=== PATIENT | male | born 1980 | race Caucasian/White ===

== ENCOUNTER 2016-10-06 12:01 | Emergency (ER) | payer OTHER ==
[2016-10-06 12:07] VITALS: BP 130/85
[2016-10-06] MEDS ORDERED: LIDOCAINE 1% 2 ML VIAL ONE (13:22)
--- NOTE | 2016-10-06 13:38 | ED Physician Documentation ---
PD HPI UPPER EXT INJURY - Stated complaint Stated Complaint: L THUMB LAC - Chief complaint Chief Complaint: Ext Problem - History obtained from History obtained from: Patient, Family - History of Present Illness Location: Left, Finger (thumb) Type of injury: Laceration Where injury occurred: Home Timing - onset: How many hours ago Timing - duration: Hours Timing - details: Abrupt onset, Still present Improved by: Rest, Immobilization Worsened by: Moving, Palpating Associated symptoms: No: Weakness, Numbness, Tingling Contributing factors: No: Anticoagulated Similar symptoms before: Diagnosis (laceration) Recently seen: Not recently seen Review of Systems Constitutional: denies: Fever Respiratory: denies: Cough GI: denies: Nausea, Vomiting : denies: Dysuria Skin: reports: Laceration (s) Musculoskeletal: reports: Extremity pain. denies: Neck pain, Back pain Neurologic: denies: Generalized weakness, Focal weakness PD PAST MEDICAL HISTORY - Past Medical History Past Medical History: No Psych: Depression, Anxiety - Past Surgical History Past Surgical History: No - Present Medications Home Medications: Ambulatory Orders Medication Instructions Recorded Confirmed Bupropion HCl [Wellbutrin] 75 mg PO DAILY 04/13/15 10/06/16 Montelukast Sodium [Singulair] 5 mg PO DAILY 10/06/16 10/06/16 Omeprazole [PriLOSEC] 20 mg PO DAILY 10/06/16 10/06/16 - Allergies Allergies/Adverse Reactions: Allergies Allergy/AdvReac Type Severity Reaction Status Date / Time No Known Drug Allergies Allergy Verified 10/06/16 13:17 - Social History Does the pt smoke?: Yes Smoking Status: Current every day smoker Does the pt drink ETOH?: No Does the pt have substance abuse?: No - Immunizations Immunizations are current?: Yes Immunizations: TDAP >10years/unknown PD ED PE NORMAL - Vitals Vital signs reviewed: Yes (hypertensive ) - General General: Alert and oriented X 3, No acute distress, Well developed/nourished - HEENT HEENT: Atraumatic, PERRL - Respiratory Respiratory: No respiratory distress - Derm Derm: Normal color, Warm and dry, No rash - Extremities Extremities: No deformity, Other (There is a 2cm laceration on the radial surface of the left thumb disatlly. ) - Neuro Neuro: No motor deficit, No sensory deficit - Psych Psych: Normal mood, Normal affect Results - Vitals Vitals: Vital Signs - 24 hr 10/06/16 12:05 Temperature 36.4 C L Heart Rate 64 Respiratory 18 Rate Blood Pressure 130/85 H O2 Saturation 100 Oxygen O2 Source Room air Procedures - Laceration (location) left thumb Length in cm: 2 Wound type: Linear, Clean Neurovascular status: Sensory intact, Motor intact, Vascular intact Anesthesia: Lidocaine 1% Wound Preparation: Hibiclens, Irrigated copiously NS, Wound explored, To the base Skin layer closure: Nylon, Interrupted, Size #-0 - enter number (5-0), Sutures - enter # (4) Other: Patient tolerated well, No complications, Neurovascular intact, Dressing applied, Tetanus UTD PD MEDICAL DECISION MAKING - ED course Complexity details: considered differential, d/w patient, d/w family ED course: 36-year-old male with a simple laceration to the left distal thumb from a pocket knife is sutured. Departure - Departure Disposition: 01 Home, Self Care Clinical Impression: Thumb laceration Qualifiers: Encounter type: initial encounter Laterality: left Qualified Code(s): S61.012A - Laceration without foreign body of left thumb without damage to nail, initial encounter Condition: Stable Instructions: ED Laceration Hand Follow-Up: Vamshi Weeks MD [Primary Care Provider] - Comments: Sutures out in 7-10 days.
== END 2016-10-06 13:51 | disposition home or self-care (01) ==
LOC: ED 12:01
DX: S61.012A Laceration without foreign body of left thumb without damage to nail, initial encounter (principal); W26.0XXA Contact with knife, initial encounter; Y92.019 Unspecified place in single-family (private) house as the place of occurrence of the external cause; F17.200 Nicotine dependence, unspecified, uncomplicated
CPT/HCPCS: 12001; 99282; 99283

== ENCOUNTER 2017-03-18 17:35 | Emergency (ER) | payer OTHER ==
[2017-03-18] MEDS ORDERED: LORazepam 0.5 MG TABLET PO STA (18:12)
[2017-03-18 18:17] LABS: BASOPHILS # (AUTO) 0.2 10^3/uL (0.0-0.1); BASOPHILS % (AUTO) 1.1 %; EOSINOPHILS # (AUTO) 0.5 10^3/uL (0.0-0.7); EOSINOPHILS % (AUTO) 3.7 %; HGB - HEMOGLOBIN 15.7 g/dL (14.0-18.0); LYMPHOCYTES # (AUTO) 4.9 10^3/uL (1.5-3.5); LYMPHOCYTES % (AUTO) 36.2 %; MEAN CORPUSCULAR HEMOGLOBIN 29.3 pg (27.0-31.0); MEAN CORPUSCULAR HGB CONC 34.1 g/dL (32.0-36.0); MEAN PLATELET VOLUME 7.9 fL (7.4-11.4); MONOCYTES # (AUTO) 0.8 10^3/uL (0.0-1.0); MONOCYTES % (AUTO) 5.9 %; NEUTROPHILS # (AUTO) 7.2 10^3/uL (1.5-6.6); NEUTROPHILS % (AUTO) 53.1 %; NUCLEATED RED BLOOD CELLS AUTO 0.1 /100WBC; RED BLOOD COUNT 5.35 10^6/uL (4.70-6.10); RED CELL DISTRIBUTION WIDTH 13.2 % (12.0-15.0); UNCORRECTED WHITE BLOOD COUNT 13.6 x10^3/uL; WHITE BLOOD COUNT 13.6 x10^3/uL (4.8-10.8)
[2017-03-18 18:29] LABS: ALBUMIN/GLOBULIN RATIO 1.6 (1.0-2.2); BILIRUBIN,TOTAL 0.8 mg/dL (0.2-1.0); CALCIUM 9.4 mg/dL (8.5-10.3); CREATININE 1.2 mg/dL (0.6-1.2); POTASSIUM 3.3 mmol/L (3.5-5.0); TOTAL PROTEIN 7.8 g/dL (6.7-8.2)
--- NOTE | 2017-03-18 18:46 | ED Physician Documentation ---
History of Present Illness - Stated complaint Stated Complaint: CHEST PX - Chief complaint Chief Complaint: Cardiac - History obtained from History obtained from: Patient, Family - History of Present Illness Timing: Today, How many hours ago (1) Pain level max: 3 Pain level now: 0 Improved by: nothing Worsened by: nothing - Additonal information Additional information: states eating dinner tonight and felt "lightheaded" and fuzzy. This has happened several times in the past. No cause found. Also had L upper chest wall pain, similar symptoms several times in the past. No cause found. Has a history of anxiety. No family history of young cardiac disease. Review of Systems Ten Systems: 10 systems reviewed and negative Constitutional: denies: Fever, Chills Nose: denies: Rhinorrhea / runny nose, Congestion Throat: denies: Sore throat Skin: denies: Rash Musculoskeletal: denies: Neck pain, Back pain Neurologic: reports: Numbness (states mild numbness to the L hand and L cheek.) . denies: Focal weakness, Confused, Altered mental status, Headache, Head injury Psychiatric: reports: Anxiety PD PAST MEDICAL HISTORY - Past Medical History Past Medical History: Yes Psych: Depression, Anxiety - Past Surgical History Past Surgical History: No - Present Medications Home Medications: Ambulatory Orders Medication Instructions Recorded Confirmed Bupropion HCl [Wellbutrin] 75 mg PO DAILY 04/13/15 03/18/17 Montelukast Sodium [Singulair] 5 mg PO DAILY 10/06/16 03/18/17 Omeprazole [PriLOSEC] 20 mg PO DAILY 10/06/16 03/18/17 - Allergies Allergies/Adverse Reactions: Allergies Allergy/AdvReac Type Severity Reaction Status Date / Time No Known Drug Allergies Allergy Verified 03/18/17 17:43 - Social History Does the pt smoke?: Yes Smoking Status: Current every day smoker Does the pt drink ETOH?: No Does the pt have substance abuse?: No - Immunizations Immunizations are current?: Yes Immunizations: TDAP >10years/unknown PD ED PE NORMAL - Vitals Vital signs reviewed: Yes - General General: Alert and oriented X 3, No acute distress, Well developed/nourished - HEENT HEENT: Atraumatic, PERRL, EOMI, Moist mucous membranes - Neck Neck: Supple, no meningeal sign, No JVD, No bruit - Cardiac Cardiac: RRR, No murmur, Strong equal pulses - Respiratory Respiratory: No respiratory distress, Clear bilaterally - Abdomen Abdomen: Soft, Non tender, Non distended - Derm Derm: Warm and dry, No rash - Extremities Extremities: No edema, No calf tenderness / cord - Neuro Neuro: Alert and oriented X 3, hyster driver 2-12 intact, No motor deficit, No sensory deficit, Normal speech Eye Opening: Spontaneous Motor: Obeys Commands Verbal: Oriented GCS Score: 15 - Psych Psych: Normal mood, Normal affect - Free text exam Free text exam: NIHSS 0 Results - Vitals Vitals: Vital Signs - 24 hr 03/18/17 03/18/17 03/18/17 17:40 18:00 18:51 Temperature 36.8 C Heart Rate 93 80 83 Respiratory 18 20 18 Rate Blood Pressure 146/100 H 144/95 H 145/97 H O2 Saturation 100 97 Oxygen O2 Source Room air - Labs Labs: Laboratory Tests 03/18/17 03/18/17 03/18/17 17:55 17:55 17:55 WBC 13.6 H RBC 5.35 Hgb 15.7 Hct 46.0 MCV 86.0 MCH 29.3 MCHC 34.1 RDW 13.2 Plt Count 310 MPV 7.9 Neut # 7.2 H Lymph # 4.9 H Hart # 0.8 Eos # 0.5 Baso # 0.2 H Absolute Nucleated RBC 0.01 Nucleated RBC % 0.1 Sodium 137 Potassium 3.3 L Chloride 99 L Carbon Dioxide 26 Anion Gap 12.0 BUN 11 Creatinine 1.2 Estimated GFR (MDRD) 68 L Glucose 132 H Calcium 9.4 Total Bilirubin 0.8 AST 30 ALT 58 Alkaline Phosphatase 36 L Troponin I < 0.04 Total Protein 7.8 Albumin 4.8 Globulin 3.0 Albumin/Globulin Ratio 1.6 Lipase 25 - Rads (name of study) cxr Radiology: Prelim report reviewed, EMP read contemporaneously, See rad report ( NAD) PD MEDICAL DECISION MAKING - ED course Complexity details: reviewed results, re-evaluated patient, considered differential (No ST elevation [place], no aortic dissection, no PE, no tension pneumothorax, no aortic aneurysm), d/w patient, d/w family ED course: Patient is a 36-year-old male who presents to the emergency department with atypical chest pain today. Appears to be mainly anxiety related. Resolved with Ativan. He is well-appearing, nontoxic. No acute findings on EKG, laboratory testing or x-ray. No evidence of stroke. No evidence of tumor or mass. No evidence of aortic dissection, pulmonary embolus. Patient and family counseled regarding signs and symptoms for which I believe and urgent re- evaluation would be necessary. Patient with good understanding of and agreement to plan and is comfortable going home at this time This document was made in part using voice recognition software. While efforts are made to proofread this document, sound alike and grammatical errors may occur. Departure - Departure Disposition: Home, Self Care Clinical Impression: Lightheaded Chest pain Qualifiers: Chest pain type: unspecified Qualified Code(s): R07.9 - Chest pain, unspecified Condition: Good Instructions: ED Chest Pain Atypical Unkn Cause Follow-Up: Shavon Weeks MD [Primary Care Provider] - Within 1 week Comments: Return if you worsen. Your tests are normal tonight. The cause of your symptoms is unclear, you should follow up closely with your doctor. Discharge Date/Time: 03/18/17 19:45
[2017-03-18 18:52] VITALS: BP 145/97
--- NOTE | 2017-03-18 19:09 | XRAY Preliminary Report ---
Exam: XR CHEST 1 VIEW IMPRESSION: Stable negative single view chest. [facility] SITE ID: [id number]
--- NOTE | 2017-03-18 19:11 | XRAY Report ---
EXAM: CHEST RADIOGRAPHY EXAM DATE: 03/18/2017 06:23 PM. CLINICAL HISTORY: Chest pain. COMPARISON: 05/17/2011. TECHNIQUE: 1 view. FINDINGS: Lungs/Pleura: No focal opacities evident. No pleural effusion. No pneumothorax. Mediastinum: Within exam limitations, the cardiomediastinal contour is normal. Other: None. IMPRESSION: Stable negative single view chest. [facility] Referring Provider Line: [phone] SITE ID: [id number]
== END 2017-03-18 19:45 | disposition home or self-care (01) ==
LOC: ED 17:35
DX: R07.9 Chest pain, unspecified (principal); R42 Dizziness and giddiness; F41.9 Anxiety disorder, unspecified; F17.200 Nicotine dependence, unspecified, uncomplicated
CPT/HCPCS: 36415; 71010; 80053; 83690; 84484; 85025; 93005; 99283; A9270

== ENCOUNTER 2017-12-19 18:12 | Emergency (ER) | payer OTHER ==
[2017-12-19 18:43] LABS: BASOPHILS # (AUTO) 0.2 10^3/uL (0.0-0.1); BASOPHILS % (AUTO) 1.1 %; EOSINOPHILS # (AUTO) 0.5 10^3/uL (0.0-0.7); EOSINOPHILS % (AUTO) 3.3 %; HGB - HEMOGLOBIN 16.2 g/dL (14.0-18.0); LYMPHOCYTES % (AUTO) 35.4 %; MEAN CORPUSCULAR HEMOGLOBIN 30.3 pg (27.0-31.0); MEAN CORPUSCULAR HGB CONC 34.8 g/dL (32.0-36.0); MEAN CORPUSCULAR VOLUME 87.3 fL (80.0-94.0); MEAN PLATELET VOLUME 7.7 fL (7.4-11.4); MONOCYTES # (AUTO) 0.7 10^3/uL (0.0-1.0); NEUTROPHILS # (AUTO) 7.8 10^3/uL (1.5-6.6); NEUTROPHILS % (AUTO) 55.2 %; PLT - PLATELET COUNT 313 10^3/uL (130-450); RED BLOOD COUNT 5.34 10^6/uL (4.70-6.10); RED CELL DISTRIBUTION WIDTH 13.6 % (12.0-15.0); WHITE BLOOD COUNT 14.2 x10^3/uL (4.8-10.8)
[2017-12-19 18:56] LABS: ALBUMIN 4.8 g/dL (3.2-5.5); ALBUMIN/GLOBULIN RATIO 1.4 (1.0-2.2); BILIRUBIN,TOTAL 0.5 mg/dL (0.2-1.0); CALCIUM 9.3 mg/dL (8.5-10.3); CREATININE 1.3 mg/dL (0.6-1.2); TOTAL PROTEIN 8.2 g/dL (6.7-8.2)
[2017-12-19 19:08] LABS: BILIRUBIN,URINE NEGATIVE (NEGATIVE); GLUCOSE, URINE (UA) NEGATIVE (NEGATIVE); KETONES,URINE (UA) NEGATIVE (NEGATIVE); LEUKOCYTE ESTERASE, URINE NEGATIVE (NEGATIVE); NITRITE,URINE NEGATIVE (NEGATIVE); OCCULT BLOOD,URINE NEGATIVE (NEGATIVE); PROTEIN,URINE NEGATIVE (NEGATIVE); UROBILINOGEN,URINE 0.2 (NORMAL) E.U./dL (NORMAL)
[2017-12-19 19:11] LABS: CLARITY,URINE CLEAR (CLEAR)
--- NOTE | 2017-12-19 20:52 | ED Physician Documentation ---
PD HPI ABD PAIN - Stated complaint Stated Complaint: R AB PX - Chief complaint Chief Complaint: Abd Pain - History obtained from History obtained from: Patient - History of Present Illness Timing - onset: How many days ago (3) Timing - duration: Days (3) Timing - details: Gradual onset, Still present, Waxing and waning, Still present in ED Quality: Cramping, Aching, Pain Location: RLQ Radiation: No: Right flank Improved by: No: Eating, BM Worsened by: No: Eating Associated symptoms: Nausea, Diarrhea, Hematochezia. No: Fever, Melena, Dysuria, Hematuria, Chest pain, Loss of appetite, Weight loss Similar symptoms before: No diagnosis (has recurrent abd pain usually diffuse. Had not had it persistent RLQ in the past.) Recently seen: Not recently seen Review of Systems Constitutional: reports: Chills. denies: Fever, Myalgias Nose: denies: Rhinorrhea / runny nose, Congestion Throat: denies: Dental pain / toothache, Sore throat Cardiac: denies: Chest pain / pressure, Palpitations Respiratory: denies: Dyspnea, Cough GI: reports: Abdominal Pain, Nausea, Diarrhea (with bloody streaks, which he says is relatively common for him.). denies: Vomiting : denies: Dysuria, Frequency PD PAST MEDICAL HISTORY - Past Medical History Past Medical History: Yes Cardiovascular: None Respiratory: None Neuro: None Endocrine/Autoimmune: None GI: Other (recurrent abd pain and diarrhea, sees GI, and has had scopes without dx. Had pill camera study this past week, without results yet. ) Psych: Depression, Anxiety Other Past Medical History: ABd pain & diarrhea. - Past Surgical History Past Surgical History: Yes - Present Medications Home Medications: Ambulatory Orders Medication Instructions Recorded Confirmed Bupropion HCl [Wellbutrin] 75 mg PO DAILY 04/13/15 03/18/17 Omeprazole [PriLOSEC] 20 mg PO DAILY 10/06/16 03/18/17 HYDROcod/ACETAM 5/325 [[place] 5/325] 1 tab PO Q6H PRN #15 tablet 12/19/17 Naproxen 375 mg PO BID #20 tablet 12/19/17 Ondansetron HCl [Zofran] 4 mg PO Q6H PRN #20 tablet 12/19/17 Sertraline [Zoloft] 25 mg PO DAILY 12/19/17 12/19/17 - Allergies Allergies/Adverse Reactions: Allergies Allergy/AdvReac Type Severity Reaction Status Date / Time No Known Drug Allergies Allergy Verified 12/19/17 18:26 - Social History Does the pt smoke?: Yes Smoking Status: Current every day smoker Does the pt drink ETOH?: No Does the pt have substance abuse?: No - Immunizations Immunizations are current?: Yes Immunizations: TDAP >10years/unknown - POLST Patient has POLST: No PD ED PE NORMAL - Vitals Vital signs reviewed: Yes - General General: Alert and oriented X 3, Well developed/nourished, Other (appears in some pain) - HEENT HEENT: Moist mucous membranes, Pharynx benign - Neck Neck: Supple, no meningeal sign, No adenopathy - Cardiac Cardiac: RRR, No murmur - Respiratory Respiratory: Clear bilaterally - Abdomen Abdomen: Normal bowel sounds, Soft, Non distended, No organomegaly, Other (Tender RLQ with some guarding. Also with soft tissue density RLQ abd wall that is firm and not tender. No skin lesions. Likely lipoma but consider hernia as is deep and near muscle layer. ) - Male Male : Deferred - Rectal Rectal: Deferred - Back Back: No CVA TTP - Derm Derm: Normal color, Warm and dry, No rash Results - Vitals Vitals: Vital Signs - 24 hr 12/19/17 12/19/17 18:23 22:01 Temperature 37.1 C Heart Rate 108 H 80 Respiratory 20 16 Rate Blood Pressure 158/100 H 146/92 H O2 Saturation 98 95 Oxygen O2 Source Room air - Labs Labs: Laboratory Tests 12/19/17 12/19/17 12/19/17 18:25 18:38 18:38 WBC 14.2 H RBC 5.34 Hgb 16.2 Hct 46.6 MCV 87.3 MCH 30.3 MCHC 34.8 RDW 13.6 Plt Count 313 MPV 7.7 Neut # (Auto) 7.8 H Lymph # (Auto) 5.0 H [place] # (Auto) 0.7 Eos # (Auto) 0.5 Baso # (Auto) 0.2 H Absolute Nucleated RBC 0.01 Nucleated RBC % 0.1 Sodium 138 Potassium 3.6 Chloride 102 Carbon Dioxide 26 Anion Gap 10.0 BUN 14 Creatinine 1.3 H Estimated GFR (MDRD) 61 L Glucose 100 Calcium 9.3 Total Bilirubin 0.5 AST 27 ALT 52 Alkaline Phosphatase 38 L Total Protein 8.2 Albumin 4.8 Globulin 3.3 Albumin/Globulin Ratio 1.4 Lipase 41 Urine Color YELLOW Urine Clarity CLEAR Urine pH 6.0 Ur Specific [place] 1.010 Urine Protein NEGATIVE Urine Glucose (UA) NEGATIVE Urine Ketones NEGATIVE Urine Occult Blood NEGATIVE Urine Nitrite NEGATIVE Urine Bilirubin NEGATIVE Urine Urobilinogen 0.2 (NORMAL) Ur Leukocyte Esterase NEGATIVE Ur Microscopic Review NOT INDICATED Urine Culture Comments NOT INDICATED - Rads (name of study) abd CT Radiology: Prelim report reviewed (normal appendix. No acute process) PD MEDICAL DECISION MAKING - ED course Complexity details: reviewed results (normal appendix and no other acute process. No density nor hernia in right abd wall, so firm area likely lipoma. ), re-evaluated patient, considered differential (consider appy with focal RLQ pain and elevated WBC. Has had colitis in the past, and see GI. ), d/w patient - Sepsis Event Vital Signs: Vital Signs - 24 hr 12/19/17 12/19/17 18:23 22:01 Temperature 37.1 C Heart Rate 108 H 80 Respiratory 20 16 Rate Blood Pressure 158/100 H 146/92 H O2 Saturation 98 95 Oxygen O2 Source Room air Departure - Departure Disposition: 01 Home, Self Care Clinical Impression: Abdominal pain Qualifiers: Abdominal location: right lower quadrant Qualified Code(s): R10.31 - Right lower quadrant pain Condition: Stable Record reviewed to determine appropriate education?: Yes Instructions: ED Abdominal Pain Unkn Cause Follow-Up: Shavon Weeks MD [Primary Care Provider] - Prescriptions: HYDROcod/ACETAM 5/325 [[place] 5/325] 1 tab PO Q6H PRN #15 tablet PRN Reason: Pain Naproxen 375 mg PO BID #20 tablet Ondansetron HCl [Zofran] 4 mg PO Q6H PRN #20 tablet PRN Reason: Nausea / Vomiting Comments: Drink lots of fluids. Your CT scan appears normal with a normal appendix and no obvious cause for the pain. Since you are having pain and some diarrhea, I would presume some colitis. Use some anti-inflammatories for it. Add ondansetron if needed for nausea and pain medicine if needed. Follow-up with your GI specialist if persisting into next week.
[2017-12-19] MEDS ORDERED: MORPHINE 10 MG/ML VIAL IVP STA (21:08)
[2017-12-19] MEDS ORDERED: ONDANSETRON 4 MG/2 ML VIAL IVP STA (21:08)
[2017-12-19] MEDS ORDERED: SODIUM CHLORIDE 0.9% 1,000 ML IV ONE (21:08)
[2017-12-19] MEDS ORDERED: KETOROLAC 15 MG/ML VIAL IVP STA (21:09)
[2017-12-19] MEDS ORDERED: IOPAMIDOL-300 100 ML VIAL ONE (21:22)
--- NOTE | 2017-12-19 22:14 | CT Report ---
Reason: RLQ pain for 3 days Procedure Date: 12/19/2017 Accession Number: [id number] / [id number] Procedure: CT - Abdomen/Pelvis W/ CPT Code: FULL RESULT: EXAM: CT ABDOMEN AND PELVIS EXAM DATE: 12/19/2017 09:38 PM. CLINICAL HISTORY: RLQ pain for 3 days. COMPARISONS: None. TECHNIQUE: Routine helical CT imaging was performed through the abdomen and pelvis. IV contrast: 100 ML ISOVUE 300. Enteric contrast: No. Reconstructions: Coronal and sagittal. In accordance with CT protocol optimization, one or more of the following dose reduction techniques were utilized for this exam: automated exposure control, adjustment of mA and/or KV based on patient size, or use of iterative reconstructive technique. FINDINGS: Lung Bases: Unremarkable. Liver: Normal. No masses. Gallbladder/Bile Ducts: There is a single calcified gallstone. No evidence of cholecystitis or bile duct obstruction. Spleen: Normal. Pancreas: Normal. Adrenal Glands: Normal. Kidneys: Normal. No masses or hydronephrosis. Peritoneal Cavity/Bowel: Normal. No free fluid, free air or adenopathy. No masses or acute inflammatory process. The appendix is well visualized and normal. Pelvic Organs: Normal. The bladder and visualized pelvic organs are within normal limits. Vasculature: No aneurysms or other significant abnormality. Bones: No significant abnormality. Other: None. IMPRESSION: 1. Cholelithiasis. 2. Normal appendix. 3. No acute process within the abdomen and pelvis. [facility]
[2017-12-19] MEDS ORDERED: PROCHLORPERAZINE 10 MG/2 ML VIAL IVP STA (22:52)
[2017-12-19] MEDS ORDERED: DEXAMETHASONE 10 MG/ML VIAL IVP STA (22:53)
[2017-12-19] MEDS ORDERED: ONDANSETRON ODT 4 MG Prepack 2 TL PRN (22:53)
[2017-12-19 23:34] VITALS: BP 114/68
[2017-12-23] MEDS ORDERED: IOPAMIDOL-300 100 ML VIAL IVP ONE (18:26)
== END 2017-12-19 23:38 | disposition home or self-care (01) ==
LOC: ED 18:12
DX: R10.31 Right lower quadrant pain (principal); F17.200 Nicotine dependence, unspecified, uncomplicated
CPT/HCPCS: 36415; 74177; 80053; 81003; 83690; 85025; 96361; 96374; 96375; 99284; Q9967; 81001; 87086

== ENCOUNTER 2018-05-05 15:32 | Emergency (ER) | payer OTHER ==
[2018-05-05 15:38] VITALS: BP 142/85
--- NOTE | 2018-05-05 17:23 | ED Physician Documentation ---
PD HPI ABD PAIN - Stated complaint Stated Complaint: CANNOT URINATE/ POST OP TODAY - Chief complaint Chief Complaint: Abd Pain - History obtained from History obtained from: Patient - History of Present Illness Timing - onset: Today (He had a laparoscopic cholecystectomy this morning and was discharged home around noon. He has not been able to urinate since.) Review of Systems Ten Systems: 10 systems reviewed and negative Nose: reports: Reviewed and negative Throat: reports: Reviewed and negative Cardiac: reports: Reviewed and negative PD PAST MEDICAL HISTORY - Past Medical History Cardiovascular: None Respiratory: None Neuro: None Endocrine/Autoimmune: None GI: Other (recurrent abd pain and diarrhea, sees GI, and has had scopes without dx. Had pill camera study this past week, without results yet. ) Psych: Depression, Anxiety - Past Surgical History Past Surgical History: Yes - Present Medications Home Medications: Ambulatory Orders Medication Instructions Recorded Confirmed Bupropion HCl [Wellbutrin] 75 mg PO DAILY 04/13/15 03/18/17 Omeprazole [PriLOSEC] 20 mg PO DAILY 10/06/16 03/18/17 HYDROcod/ACETAM 5/325 [[place] 5/325] 1 tab PO Q6H PRN #15 tablet 12/19/17 Naproxen 375 mg PO BID #20 tablet 12/19/17 Ondansetron HCl [Zofran] 4 mg PO Q6H PRN #20 tablet 12/19/17 Sertraline [Zoloft] 25 mg PO DAILY 12/19/17 12/19/17 - Allergies Allergies/Adverse Reactions: Allergies Allergy/AdvReac Type Severity Reaction Status Date / Time No Known Drug Allergies Allergy Verified 05/05/18 15:39 - Social History Does the pt smoke?: Yes Smoking Status: Current every day smoker Does the pt drink ETOH?: No Does the pt have substance abuse?: No - Immunizations Immunizations are current?: Yes Immunizations: TDAP >10years/unknown - POLST Patient has POLST: No PD ED PE NORMAL - Vitals Vital signs reviewed: Yes - General General: Alert and oriented X 3, No acute distress - Abdomen Abdomen: Normal bowel sounds, Soft, Non tender - Neuro Neuro: Alert and oriented X 3, Normal speech - Psych Psych: Normal mood, Normal affect Results - Vitals Vitals: Vital Signs - 24 hr 05/05/18 15:36 Temperature 36.7 C Heart Rate 111 H Respiratory 18 Rate Blood Pressure 142/85 H O2 Saturation 97 Oxygen O2 Source Room air PD MEDICAL DECISION MAKING - ED course ED course: This is a 37-year-old gentleman with postoperative urinary retention. I asked the nurse to place a Estes and a leg bag. The bladder scan showed minimal urine in his bladder but this was confirmed to be wrong by bedside ultrasound which showed a very full bladder. Departure - Departure Disposition: 01 Home, Self Care Clinical Impression: Postoperative urinary retention Condition: Good Record reviewed to determine appropriate education?: Yes Instructions: ED Catheter Care Estes Comments: Follow-up with your doctor around Friday for catheter removal and recheck. Your blood pressure was elevated today on check into the emergency department. This does not mean that you have hypertension, it is a common phenomenon to come to the emergency department and have elevated blood pressure. I recommend that you see your primary care physician within the week to have it rechecked when you are feeling better.
== END 2018-05-05 18:19 | disposition home or self-care (01) ==
LOC: ED 15:32
DX: N99.89 Other postprocedural complications and disorders of genitourinary system (principal); R33.9 Retention of urine, unspecified; R03.0 Elevated blood-pressure reading, without diagnosis of hypertension
CPT/HCPCS: 51702; 99282

== ENCOUNTER 2018-10-26 08:00 | Outpatient (CLI) | payer OTHER ==
[2018-10-26 12:51] LABS: BASOPHILS # (AUTO) 0.1 10^3/uL (0.0-0.1); BASOPHILS % (AUTO) 1.4 %; EOSINOPHILS # (AUTO) 0.4 10^3/uL (0.0-0.7); EOSINOPHILS % (AUTO) 4.8 %; HGB - HEMOGLOBIN 15.3 g/dL (14.0-18.0); LYMPHOCYTES # (AUTO) 2.5 10^3/uL (1.5-3.5); LYMPHOCYTES % (AUTO) 32.2 %; MEAN CORPUSCULAR HEMOGLOBIN 30.3 pg (27.0-31.0); MEAN CORPUSCULAR HGB CONC 33.3 g/dL (32.0-36.0); MEAN CORPUSCULAR VOLUME 90.9 fL (80.0-94.0); MEAN PLATELET VOLUME 10.5 fL (7.4-11.4); MONOCYTES # (AUTO) 0.6 10^3/uL (0.0-1.0); NEUTROPHILS # (AUTO) 4.2 10^3/uL (1.5-6.6); NEUTROPHILS % (AUTO) 53.2 %; PLT - PLATELET COUNT 299 10^3/uL (130-450); RED BLOOD COUNT 5.05 10^6/uL (4.70-6.10); RED CELL DISTRIBUTION WIDTH 13.3 % (12.0-15.0); WHITE BLOOD COUNT 7.9 x10^3/uL (4.8-10.8)
[2018-10-26 13:16] LABS: ALBUMIN 4.3 g/dL (3.2-5.5); ALBUMIN/GLOBULIN RATIO 1.5 (1.0-2.2); ALKALINE PHOSPHATASE 31 IU/L (42-121); ALT ALANINE AMINOTRANSFERASE 34 IU/L (10-60); AST ASPARTATE AMINOTRANSFERASE 21 IU/L (10-42); BILIRUBIN,TOTAL 0.5 mg/dL (0.2-1.0); BUN - BLOOD UREA NITROGEN 11 mg/dL (6-20); CALCIUM 9.1 mg/dL (8.5-10.3); CARBON DIOXIDE - CO2 26 mmol/L (21-32); CHLORIDE 102 mmol/L (101-111); CHOL/HDL RATIO 4.7 (<5.0); CHOLESTEROL 206 mg/dL; CREATININE 1.1 mg/dL (0.6-1.2); GFR - MDRD 74 (>89); GLUCOSE 110 mg/dL (70-100); HDL CHOLESTEROL 44 mg/dL; LDL CHOLESTEROL,CALCULATED 151 mg/dL; LDL/HDL RATIO 3.4 (<3.6); SODIUM 142 mmol/L (135-145); TOTAL PROTEIN 7.1 g/dL (6.7-8.2); VLDL CHOLESTEROL 11 mg/dL
== END 2018-10-26 23:59 | disposition home or self-care (01) ==
LOC: LAB.WCP 08:00
PROVIDERS: ATTEND Physician Assistant Medical
DX: Z00.00 Encounter for general adult medical examination without abnormal findings (principal)
CPT/HCPCS: 36415; 80053; 80061; 83721; 84443; 85025

== ENCOUNTER 2021-03-07 11:18 | Outpatient (CLI) | payer OTHER ==
--- NOTE | 2021-03-07 11:56 | XRAY Report ---
PROCEDURE: Hip w/Pelvis 1V LT INDICATIONS: L HIP PX TECHNIQUE: AP pelvis with lateral view(s) of the left hip(s). COMPARISON: None. FINDINGS: Bones: No fractures or dislocations. Mild bilateral hip joint osteoarthritic changes are seen. No e vidence of avascular necrosis of femoral head. 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 Pelvic ring appears intact. No garcia spicious bony lesions. Soft tissues: The visualized bowel gas pattern is normal. No suspicious soft tissue calcifications. IMPRESSION: Mild symmetric appearing bilateral hip joint osteoarthritis. No fracture or dislocation. No evidence of avascular necrosis. Prominence of superior left femoral head neck junction which may be seen associated with cam type fem oral acetabular impingement. Reviewed by: Akash Esquivel MD on 03/07/2021 11:54 AM PST Approved by: Akash Esquivel MD on 03/07/2021 11:54 AM PST Station ID: [id number]
== END 2021-03-07 11:19 | disposition home or self-care (01) ==
LOC: DI.N 11:18
PROVIDERS: ATTEND Physician Assistant Medical
DX: M16.0 Bilateral primary osteoarthritis of hip (principal)

== ENCOUNTER 2022-04-22 14:13 | Outpatient (CLI) | payer OTHER ==
[2022-04-22 18:03] LABS: ALBUMIN 3.8 g/dL (3.2-5.5); ALBUMIN/GLOBULIN RATIO 1.2 (1.0-2.2); ALKALINE PHOSPHATASE 40 IU/L (42-121); ALT ALANINE AMINOTRANSFERASE 39 IU/L (10-60); AST ASPARTATE AMINOTRANSFERASE 22 IU/L (10-42); BILIRUBIN,TOTAL 0.6 mg/dL (0.2-1.0); BUN - BLOOD UREA NITROGEN 18 mg/dL (6-20); CARBON DIOXIDE - CO2 27 mmol/L (21-32); CHLORIDE 103 mmol/L (101-111); CHOL/HDL RATIO 3.4 (<5.0); CHOLESTEROL 179 mg/dL; CREATININE 1.2 mg/dL (0.6-1.2); GFR - MDRD 66 (>89); GLUCOSE 92 mg/dL (70-100); HDL CHOLESTEROL 52 mg/dL; LDL CHOLESTEROL,CALCULATED 100 mg/dL; LDL/HDL RATIO 1.9 (<3.6); POTASSIUM 3.7 mmol/L (3.5-5.0); SODIUM 140 mmol/L (135-145); TOTAL PROTEIN 7.1 g/dL (6.7-8.2); TRIGLYCERIDES 137 mg/dL; VLDL CHOLESTEROL 27 mg/dL
[2022-04-22 18:15] LABS: BASOPHILS % (AUTO) 1.3 %; EOSINOPHILS % (AUTO) 7.7 %; HGB - HEMOGLOBIN 14.2 g/dL (14.0-18.0); MEAN CORPUSCULAR HEMOGLOBIN 25.6 pg (27.0-31.0); MEAN CORPUSCULAR HGB CONC 30.9 g/dL (32.0-36.0); MEAN CORPUSCULAR VOLUME 82.9 fL (80.0-94.0); MEAN PLATELET VOLUME 10.1 fL (7.4-11.4); MONOCYTES % (AUTO) 7.9 %; NEUTROPHILS % (AUTO) 49.4 %; PLT - PLATELET COUNT 452 10^3/uL (130-450); RED BLOOD COUNT 5.55 10^6/uL (4.70-6.10); RED CELL DISTRIBUTION WIDTH 15.5 % (12.0-15.0); WHITE BLOOD COUNT 16.7 x10^3/uL (4.8-10.8)
[2022-04-22 18:21] LABS: ABNORMAL LYMPHS % (MANUAL) 0 %; BAND NEUTROPHILS % (MANUAL) 0 %
[2022-04-22 18:51] LABS: BASOPHILS # (MANUAL) 0.2 10^3/uL (0-0.1); BASOPHILS % (MANUAL) 1 %; EOSINOPHILS # (MANUAL) 1.5 10^3/uL (0-0.7); LYMPHOCYTES # (MANUAL) 6.2 10^3/uL (1.5-3.5); LYMPHOCYTES % (MANUAL) 31 %; MONOCYTES # (MANUAL) 0.5 10^3/uL (0.0-1.0); NEUTROPHILS # (MANUAL) 8.4 10^3/uL (1.5-6.6); RBC MORPHOLOGY (MULTIPLE) NORMAL APPEARANCE (NORMAL); REACTIVE LYMPHS % (MANUAL) 6 %
[2022-04-22 18:52] LABS: DIFFERENTIAL COMMENT MANUAL DIFFERENTIAL; PLATELET ESTIMATE, MANUAL NORMAL (130-450,000) (NORMAL); PLATELET MORPHOLOGY NORMAL APPEARANCE (NORMAL)
[2022-04-23 11:28] LABS: ESTIMATED AVERAGE GLUCOSE 128 mg/dL (70-100); HEMOGLOBIN A1c% 6.1 % (4.27-6.07)
== END 2022-04-22 14:14 | disposition home or self-care (01) ==
LOC: LAB.N 14:13
PROVIDERS: ATTEND Nurse Practitioner Family
DX: E78.5 Hyperlipidemia, unspecified (principal); R93.5 Abnormal findings on diagnostic imaging of other abdominal regions, including retroperitoneum; R71.8 Other abnormality of red blood cells; D72.829 Elevated white blood cell count, unspecified; N31.9 Neuromuscular dysfunction of bladder, unspecified; R73.01 Impaired fasting glucose
CPT/HCPCS: 36415; 80053; 80061; 83036; 83721; 85025

== ENCOUNTER 2022-05-08 10:41 | Outpatient (CLI) | payer OTHER ==
[2022-05-08] MEDS ORDERED: iohexoL-300 100 ML VIAL ONE (11:32)
[2022-05-08] MEDS ORDERED: iohexoL-300 100 ML VIAL IVP ONE (14:14)
--- NOTE | 2022-05-08 16:04 | CT Report ---
PROCEDURE: ABDOMEN W/WO INDICATIONS: ABN FINDINGS OF BILIARY TRACT CONTRAST: 100ml Omnipaque 300 TECHNIQUE: 4 phase scanning was performed. After the administration of intravenous contrast, 5 mm thick section s acquired from the diaphragm to the symphysis. 5 mm coronal and sagittal reformats were acquired. For radiation dose reduction, the following was used: automated exposure control, adjustment of mA a nd/or kV according to patient size. COMPARISON: None. FINDINGS: Image quality: Excellent. Lung bases: Lung bases are clear. Heart size is normal. Liver: There are 2 liver lesions which demonstrate similar imaging characteristics of arterial enhan cement and persistent enhancement on the delayed sequences. These measure 1.2 cm in segment 7 (6/20) and 0.8 cm in segment 7 (6/18). Hepatitis C tendinosis. Other solid organs: Gallbladder is surgically absent. Biliary system is non dilated. Pancreas is n ormal in morphology. Spleen is normal in size and enhancement. No adrenal nodules. Both kidneys de monstrate normal size and enhancement, without hydronephrosis or nephrolithiasis. Nodes and vessels: No retroperitoneal or mesenteric adenopathy by size criteria. Aorta and inferior vena cava are normal in size. Bowel and peritoneum: Unenhanced bowel loops are normal in caliber. No free fluid or air. Bones: No suspicious bony lesions. No vertebral body compression fractures. Miscellaneous: Small umbilical hernia containing fat. IMPRESSION: 1. There are 2 liver lesions which demonstrate similar imaging characteristics of arterial enhancemen t and persistent enhancement on the delayed sequences. The findings are most consistent with benign l esions such as hemangiomas, less likely FNH or adenoma. 2. Hepatic steatosis. Reviewed by: Jae Field on 05/08/2022 4:02 PM PST Approved by: Jae Field on 05/08/2022 4:02 PM PST Station ID: [id number]
== END 2022-05-08 10:42 | disposition home or self-care (01) ==
LOC: DI 10:41
PROVIDERS: ATTEND Nurse Practitioner Family
DX: R93.2 Abnormal findings on diagnostic imaging of liver and biliary tract (principal); K76.0 Fatty (change of) liver, not elsewhere classified
CPT/HCPCS: 74170; Q9967

== ENCOUNTER 2022-06-24 12:20 | Outpatient (CLI) | payer OTHER ==
[2022-06-24 12:29] LABS: BASOPHILS # (AUTO) 0.2 10^3/uL (0.0-0.1); BASOPHILS % (AUTO) 1.2 %; EOSINOPHILS # (AUTO) 3.2 10^3/uL (0.0-0.7); EOSINOPHILS % (AUTO) 19.9 %; HCT - HEMATOCRIT 43.9 % (42.0-52.0); HGB - HEMOGLOBIN 13.9 g/dL (14.0-18.0); LYMPHOCYTES # (AUTO) 3.6 10^3/uL (1.5-3.5); LYMPHOCYTES % (AUTO) 22.4 %; MEAN CORPUSCULAR HEMOGLOBIN 26.3 pg (27.0-31.0); MEAN CORPUSCULAR HGB CONC 31.7 g/dL (32.0-36.0); MEAN CORPUSCULAR VOLUME 83.1 fL (80.0-94.0); MEAN PLATELET VOLUME 8.9 fL (7.4-11.4); MONOCYTES # (AUTO) 0.8 10^3/uL (0.0-1.0); MONOCYTES % (AUTO) 4.8 %; NEUTROPHILS # (AUTO) 8.1 10^3/uL (1.5-6.6); NEUTROPHILS % (AUTO) 51.3 %; PLT - PLATELET COUNT 409 10^3/uL (130-450); RED BLOOD COUNT 5.28 10^6/uL (4.70-6.10); RED CELL DISTRIBUTION WIDTH 14.8 % (12.0-15.0); WHITE BLOOD COUNT 15.9 x10^3/uL (4.8-10.8)
[2022-06-24 12:59] LABS: RBC MORPHOLOGY (MULTIPLE) 2+ ANISOCYTOSIS (NORMAL)
== END 2022-06-24 12:21 | disposition home or self-care (01) ==
LOC: LAB 12:20
PROVIDERS: ATTEND Physician Assistant Medical
DX: D72.829 Elevated white blood cell count, unspecified (principal); R06.09 Other forms of dyspnea
CPT/HCPCS: 36415; 85025; 94060; 94729

== ENCOUNTER 2022-06-24 12:27 | Outpatient (CLI) | payer OTHER | END 2022-06-24 12:28 | disposition home or self-care (01) | LOC: RT 12:27 | PROVIDERS: ATTEND Physician Assistant Medical | DX: R06.09 Other forms of dyspnea (principal) | CPT/HCPCS: 94060; 94729 ==

== ENCOUNTER 2022-11-14 08:00 | Outpatient (CLI) | payer OTHER | END 2022-11-14 23:59 | disposition home or self-care (01) | LOC: LAB.WCP 08:00 | PROVIDERS: ATTEND Physician Assistant Medical | DX: R35.0 Frequency of micturition (principal) | CPT/HCPCS: 87086 ==

== ENCOUNTER 2023-05-07 08:00 | Outpatient (CLI) | payer OTHER | END 2023-05-07 23:59 | disposition home or self-care (01) | LOC: LAB.N 08:00 | PROVIDERS: ATTEND Family Medicine | DX: N31.9 Neuromuscular dysfunction of bladder, unspecified (principal); R39.9 Unspecified symptoms and signs involving the genitourinary system | CPT/HCPCS: 87086 ==

== ENCOUNTER 2023-05-19 14:39 | Outpatient (CLI) | payer OTHER ==
--- NOTE | 2023-05-19 16:31 | XRAY Report ---
PROCEDURE: Abdomen 1 V INDICATIONS: EVALUATE FOR FOREIGN BODY TECHNIQUE: One view of the abdomen acquired. COMPARISON: None. FINDINGS: No radiopaque foreign body is identified. Mild to moderate fecal loading. Pelvic calcifications likel y representing phleboliths. IMPRESSION: No radiopaque foreign bodies identified. Small radiodensities in the pelvis may represent phleboliths . Reviewed by: Jerod Montanez MD on 05/19/2023 4:30 PM PST Approved by: Jerod Montanez MD on 05/19/2023 4:30 PM PST Station ID: [id number]
== END 2023-05-19 14:40 | disposition home or self-care (01) ==
LOC: DI.N 14:39
PROVIDERS: ATTEND Internal Medicine Gastroenterology
DX: T17.908A Unspecified foreign body in respiratory tract, part unspecified causing other injury, initial encounter (principal)

== ENCOUNTER 2023-10-21 14:18 | Outpatient (CLI) | payer OTHER ==
[2023-10-21 18:03] LABS: BASOPHILS # (AUTO) 0.1 10^3/uL (0.0-0.1); BASOPHILS % (AUTO) 0.9 %; EOSINOPHILS # (AUTO) 0.5 10^3/uL (0.0-0.7); HCT - HEMATOCRIT 46.5 % (42.0-52.0); HGB - HEMOGLOBIN 15.6 g/dL (14.0-18.0); LYMPHOCYTES # (AUTO) 1.9 10^3/uL (1.5-3.5); LYMPHOCYTES % (AUTO) 17.3 %; MEAN CORPUSCULAR HGB CONC 33.5 g/dL (32.0-36.0); MEAN CORPUSCULAR VOLUME 92.4 fL (80.0-94.0); MEAN PLATELET VOLUME 9.9 fL (7.4-11.4); MONOCYTES # (AUTO) 0.6 10^3/uL (0.0-1.0); MONOCYTES % (AUTO) 5.2 %; NEUTROPHILS # (AUTO) 7.6 10^3/uL (1.5-6.6); NEUTROPHILS % (AUTO) 71.3 %; PLT - PLATELET COUNT 335 10^3/uL (130-450); RED BLOOD COUNT 5.03 10^6/uL (4.70-6.10); RED CELL DISTRIBUTION WIDTH 12.8 % (12.0-15.0); WHITE BLOOD COUNT 10.7 x10^3/uL (4.8-10.8)
[2023-10-21 18:27] LABS: ALBUMIN 4.6 g/dL (3.2-5.5); ALBUMIN/GLOBULIN RATIO 1.9 (1.0-2.2); BILIRUBIN,TOTAL 0.4 mg/dL (0.2-1.0); CALCIUM 9.8 mg/dL (8.5-10.3); POTASSIUM 3.8 mmol/L (3.5-4.5)
== END 2023-10-21 14:19 | disposition home or self-care (01) ==
LOC: LAB.N 14:18
PROVIDERS: ATTEND Internal Medicine
DX: D72.119 Hypereosinophilic syndrome [HES], unspecified (principal)
CPT/HCPCS: 36415; 80053; 85025

== ENCOUNTER 2023-11-21 12:08 | Outpatient (CLI) | payer OTHER ==
[2023-11-21 18:35] LABS: ALBUMIN 4.7 g/dL (3.2-5.5); ALBUMIN/GLOBULIN RATIO 1.7 (1.0-2.2); BILIRUBIN,TOTAL 0.5 mg/dL (0.2-1.0); CALCIUM 9.8 mg/dL (8.5-10.3); CREATININE 1.1 mg/dL (0.6-1.3); POTASSIUM 4.2 mmol/L (3.5-4.5); TOTAL PROTEIN 7.4 g/dL (6.4-8.9)
[2023-11-21 19:01] LABS: BASOPHILS % (AUTO) 0.1 %; HCT - HEMATOCRIT 51.1 % (42.0-52.0); HGB - HEMOGLOBIN 16.7 g/dL (14.0-18.0); LYMPHOCYTES # (AUTO) 2.1 10^3/uL (1.5-3.5); LYMPHOCYTES % (AUTO) 18.9 %; MEAN CORPUSCULAR HEMOGLOBIN 30.6 pg (27.0-31.0); MEAN CORPUSCULAR HGB CONC 32.7 g/dL (32.0-36.0); MEAN CORPUSCULAR VOLUME 93.6 fL (80.0-94.0); MEAN PLATELET VOLUME 9.9 fL (7.4-11.4); MONOCYTES # (AUTO) 0.9 10^3/uL (0.0-1.0); MONOCYTES % (AUTO) 7.7 %; NEUTROPHILS # (AUTO) 8.3 10^3/uL (1.5-6.6); NEUTROPHILS % (AUTO) 72.9 %; PLT - PLATELET COUNT 415 10^3/uL (130-450); RED BLOOD COUNT 5.46 10^6/uL (4.70-6.10); WHITE BLOOD COUNT 11.3 x10^3/uL (4.8-10.8)
== END 2023-11-21 12:09 | disposition home or self-care (01) ==
LOC: LAB.N 12:08
PROVIDERS: ATTEND Internal Medicine
DX: D72.119 Hypereosinophilic syndrome [HES], unspecified (principal)
CPT/HCPCS: 36415; 80053; 85025